=== PATIENT | female | born 1960 | race Caucasian/White ===

== ENCOUNTER 2017-02-20 22:33 | Emergency (ER) | payer MEDICAID | END 2017-02-21 04:00 | disposition home or self-care (01) | LOC: D.ER 22:33 | DX: S61.031A Puncture wound without foreign body of right thumb without damage to nail, initial encounter (principal); X58.XXXA Exposure to other specified factors, initial encounter; Y93.89 Activity, other specified; Y92.029 Unspecified place in mobile home as the place of occurrence of the external cause; I10 Essential (primary) hypertension; E11.9 Type 2 diabetes mellitus without complications; E03.9 Hypothyroidism, unspecified ==

== ENCOUNTER → 2017-03-02 15:28 | Outpatient (CLI) | payer MEDICAID ==
[2017-03-02 16:48] LABS: ERYTHROCYTE SEDIMENTATION RATE 30 mm/hr (0-30)
== END | disposition home or self-care (01) ==
LOC: D.LAB 15:28
PROVIDERS: Family Medicine
DX: M86.50 Other chronic hematogenous osteomyelitis, unspecified site (principal); L03.90 Cellulitis, unspecified; S00.96XA Insect bite (nonvenomous) of unspecified part of head, initial encounter; B46.5 Mucormycosis, unspecified

== ENCOUNTER → 2017-07-29 08:00 | Outpatient (CLI) | payer MEDICAID | END | disposition home or self-care (01) | LOC: D.LAB 08:00 | DX: E53.8 Deficiency of other specified B group vitamins (principal); E78.5 Hyperlipidemia, unspecified; R53.83 Other fatigue ==

== ENCOUNTER → 2017-11-28 09:39 | Outpatient (CLI) | payer MEDICAID | END | disposition home or self-care (01) | LOC: D.LABREF 09:39 | DX: E03.9 Hypothyroidism, unspecified (principal); R53.83 Other fatigue ==

== ENCOUNTER → 2018-03-30 12:49 | Outpatient (CLI) | payer MEDICAID | END | disposition home or self-care (01) | LOC: D.MRI 12:49 | DX: M79.604 Pain in right leg (principal) ==

== ENCOUNTER → 2018-04-11 11:29 | Outpatient (CLI) | payer MEDICAID ==
[2018-04-11 12:07] LABS: BASOPHILS 0.6 % (0-2); EOSINOPHILS 1.9 % (0-7); HEMATOCRIT 38.7 % (36.0-48.0); HEMOGLOBIN 12.7 g/dL (12-16); IMMATURE GRANULOCYTES 0.2 % (0-5); LYMPHOCYTES 31.6 % (15-50); MCH 29.7 pg (26.0-34.0); MCHC 32.8 g/dL (31.0-37.0); MCV 90.4 fL (80.0-100.0); MEAN PLATELET VOLUME 9.6 fL (7.4-10.4); MONOCYTES 11.3 % (2-11); NEUTROPHILS 54.4 % (40-80); PLATELET COUNT 409 10x3/uL (130-400); RBC 4.28 10x6/uL (4.00-5.40); RDW 14.3 % (11.5-14.5); WBC 8.4 10x3/uL (4.8-10.8)
[2018-04-11 12:31] LABS: ANION GAP 13.2 mmol/L (8-16); BILIRUBIN - TOTAL 0.61 mg/dL (0.2-1.3); CALCIUM 9.1 mg/dL (8.5-10.1); CARBON DIOXIDE 27.2 mmol/L (21.0-32.0); CHOL - HDL RATIO 6.3 ratio (2.3-4.1); LDL-HDL RATIO 4.4 ratio (1.5-3.5); POTASSIUM - SERUM 3.4 mmol/L (3.5-5.1); PROTEIN - SERUM 8.3 g/dL (6.4-8.2); THYROID STIMULATING HORMONE 9.95 uIU/mL (0.36-3.74)
[2018-04-12 07:34] LABS: VITAMIN D 25 HYDROXY 24.2 ng/mL (30.0-100.0)
== END | disposition home or self-care (01) ==
LOC: D.LAB 11:29
PROVIDERS: Family Medicine
DX: E78.5 Hyperlipidemia, unspecified (principal); M89.9 Disorder of bone, unspecified; E11.9 Type 2 diabetes mellitus without complications; W57.XXXA Bitten or stung by nonvenomous insect and other nonvenomous arthropods, initial encounter

== ENCOUNTER → 2018-04-21 16:34 | Outpatient (CLI) | payer MEDICAID ==
[2018-04-24 07:12] LABS: IMMUNOGLOBULIN E 340 IU/mL (0-100)
== END | disposition home or self-care (01) ==
LOC: D.LAB 16:34
PROVIDERS: Family Medicine
DX: S00.96XA Insect bite (nonvenomous) of unspecified part of head, initial encounter (principal); E03.9 Hypothyroidism, unspecified; E74.09 Other glycogen storage disease; R50.9 Fever, unspecified; R53.83 Other fatigue

== ENCOUNTER → 2018-07-06 12:21 | Outpatient (CLI) | payer BC | END | disposition home or self-care (01) | LOC: D.US 12:21 | DX: R22.43 Localized swelling, mass and lump, lower limb, bilateral (principal); M79.605 Pain in left leg; M79.604 Pain in right leg ==

== ENCOUNTER → 2018-08-18 16:03 | Outpatient (CLI) | payer BC ==
[2018-08-18 17:04] LABS: BASOPHILS 0.7 % (0-2); EOSINOPHILS 4.8 % (0-7); HEMATOCRIT 38.8 % (36.0-48.0); HEMOGLOBIN 12.9 g/dL (12-16); IMMATURE GRANULOCYTES 0.3 % (0-5); LYMPHOCYTES 34.4 % (15-50); MCH 31.1 pg (26.0-34.0); MCHC 33.2 g/dL (31.0-37.0); MCV 93.5 fL (80.0-100.0); MEAN PLATELET VOLUME 9.7 fL (7.4-10.4); MONOCYTES 8.8 % (2-11); PLATELET COUNT 388 10x3/uL (130-400); RBC 4.15 10x6/uL (4.00-5.40); RDW 15.9 % (11.5-14.5); WBC 7.5 10x3/uL (4.8-10.8)
[2018-08-18 17:16] LABS: ALBUMIN 3.3 g/dL (3.4-5.0); ANION GAP 14.7 mmol/L (8-16); BILIRUBIN - TOTAL 0.18 mg/dL (0.2-1.3); CARBON DIOXIDE 23.1 mmol/L (21.0-32.0); CREATININE - SERUM 1.1 mg/dL (0.6-1.3); POTASSIUM - SERUM 3.8 mmol/L (3.5-5.1); PROTEIN - SERUM 7.8 g/dL (6.4-8.2); T4 THYROXIN - FREE 1.1 ng/dL (0.76-1.46); THYROID STIMULATING HORMONE 19.74 uIU/mL (0.36-3.74)
== END | disposition home or self-care (01) ==
LOC: D.LAB 16:03
PROVIDERS: ATTEND Family Medicine
DX: E03.8 Other specified hypothyroidism (principal); E11.9 Type 2 diabetes mellitus without complications

== ENCOUNTER → 2019-03-03 11:18 | Outpatient (CLI) | payer MEDICAID ==
[2019-03-03 11:50] LABS: BASOPHILS 0.5 % (0-2); EOSINOPHILS 4.2 % (0-7); HEMATOCRIT 38.8 % (36.0-48.0); HEMOGLOBIN 13.3 g/dL (12-16); IMMATURE GRANULOCYTES 0.2 % (0-5); LYMPHOCYTES 25.7 % (15-50); MCH 30.7 pg (26.0-34.0); MCHC 34.3 g/dL (31.0-37.0); MCV 89.6 fL (80.0-100.0); MONOCYTES 12.6 % (2-11); NEUTROPHILS 56.8 % (40-80); PLATELET COUNT 395 10x3/uL (130-400); RBC 4.33 10x6/uL (4.00-5.40); RDW 13.9 % (11.5-14.5); WBC 6.5 10x3/uL (4.8-10.8)
[2019-03-03 12:39] LABS: ALBUMIN 3.6 g/dL (3.4-5.0); ALKALINE PHOSPHATASE 95 U/L (46-116); ALT (SGPT) 54 U/L (10-68); BILIRUBIN - TOTAL 0.29 mg/dL (0.2-1.3); CALC OSMOLALITY 288 mosm/kg (275-300); CALCIUM 9.5 mg/dL (8.5-10.1); CARBON DIOXIDE 26.1 mmol/L (21.0-32.0); CHLORIDE - SERUM 102 mmol/L (98-107); CHOL - HDL RATIO 7.9 ratio (2.3-4.1); CHOLESTEROL, TOTAL 261 mg/dL (0-200); CREATININE - SERUM 1.6 mg/dL (0.6-1.3); GLUCOSE 195 mg/dL (74-106); HDL CHOLESTEROL 33 mg/dL (32-96); POTASSIUM - SERUM 3.6 mmol/L (3.5-5.1); PROTEIN - SERUM 7.6 g/dL (6.4-8.2); SODIUM 142 mmol/L (136-145); THYROID STIMULATING HORMONE 0.13 uIU/mL (0.36-3.74); TRIGLYCERIDE 491 mg/dL (30-200); UREA NITROGEN 14 mg/dL (7-18); eGFR NON AFRICAN AMERICAN 35 mL/min (90-120)
== END | disposition home or self-care (01) ==
LOC: D.LAB 11:18
PROVIDERS: ATTEND Family Medicine
DX: E03.9 Hypothyroidism, unspecified (principal); R53.83 Other fatigue; E78.5 Hyperlipidemia, unspecified; E55.9 Vitamin D deficiency, unspecified; E11.9 Type 2 diabetes mellitus without complications; E74.09 Other glycogen storage disease

== ENCOUNTER → 2019-04-09 11:18 | Outpatient (CLI) | payer MEDICAID ==
[2019-04-11 13:10] LABS: IMMUNOFIXATION Note: (()); IMMUNOFIXATION - URINE Note: (()); IMMUNOGLOBULIN A 440 mg/dL (87-352); IMMUNOGLOBULIN G 1182 mg/dL (700-1600); IMMUNOGLOBULIN M 46 mg/dL (26-217)
[2019-04-12 16:08] LABS: ANCA - ANTIMYELOPEROXIDASE <9.0 U/mL (0.0-9.0); ANCA - ANTIPROTEINASE 3 <3.5 U/mL (0.0-3.5); ANCA - ATYPICAL <1:20 titer (Neg:<1:20); ANCA - CYTOPLASMIC <1:20 titer (Neg:<1:20); ANCA - PERINUCLEAR <1:20 titer (Neg:<1:20)
== END | disposition home or self-care (01) ==
LOC: D.LAB 11:18
PROVIDERS: ATTEND Nurse Practitioner Family
DX: N18.3 Chronic kidney disease, stage 3 (moderate) (principal); I10 Essential (primary) hypertension; M10.9 Gout, unspecified

== ENCOUNTER → 2019-05-12 14:30 | Outpatient (CLI) | payer MEDICAID | END | disposition home or self-care (01) | LOC: D.LAB 14:30 | PROVIDERS: ATTEND Nurse Practitioner Family | DX: Z20.820 Contact with and (suspected) exposure to varicella (principal); Z28.3 Underimmunization status ==

== ENCOUNTER → 2020-11-06 18:46 | Outpatient (CLI) | payer BC | END | disposition home or self-care (01) | LOC: D.LABREF 18:46 | PROVIDERS: ATTEND Podiatrist Foot & Ankle Surgery | DX: D23.72 Other benign neoplasm of skin of left lower limb, including hip (principal) ==

== ENCOUNTER → 2020-11-13 22:02 | Outpatient (CLI) | payer BC | END | disposition home or self-care (01) | LOC: D.LABREF 22:02 | PROVIDERS: ATTEND Podiatrist Foot & Ankle Surgery | DX: L03.115 Cellulitis of right lower limb (principal) ==

== ENCOUNTER → 2020-11-14 14:19 | Outpatient (CLI) | payer BC ==
[2020-11-14 14:42] LABS: BASOPHILS 0.3 % (0-2); EOSINOPHILS 0.1 % (0-7); HEMATOCRIT 37.4 % (36.0-48.0); HEMOGLOBIN 12.5 g/dL (12-16); LYMPHOCYTES 14.8 % (15-50); MCH 31.2 pg (26.0-34.0); MCHC 33.4 g/dL (31.0-37.0); MCV 93.5 fL (80.0-100.0); MEAN PLATELET VOLUME 7.8 fL (7.4-10.4); MONOCYTES 8.6 % (2-11); NEUTROPHILS 76.2 % (40-80); PLATELET COUNT 517 10x3/uL (130-400); RDW 15.8 % (11.5-14.5); WBC 18.6 10x3/uL (4.8-10.8)
[2020-11-14 14:50] LABS: ANION GAP 12.5 mmol/L (8-16); CARBON DIOXIDE 23.6 mmol/L (21.0-32.0); CREATININE - SERUM 1.3 mg/dL (0.6-1.3); POTASSIUM - SERUM 4.1 mmol/L (3.5-5.1)
== END | disposition home or self-care (01) ==
LOC: D.LAB 14:19
PROVIDERS: ATTEND Emergency Medicine
DX: N18.30 Chronic kidney disease, stage 3 unspecified (principal); E11.9 Type 2 diabetes mellitus without complications; I10 Essential (primary) hypertension; E86.0 Dehydration; E03.9 Hypothyroidism, unspecified